=== PATIENT | male | born 1960 | race Caucasian/White ===

== ENCOUNTER 2018-05-30 17:41 | Inpatient (IN) | payer OTHER ==
[2018-05-30 18:31] VITALS: BMI 18.8
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
[2018-05-30] MEDS ORDERED: chlordiazePOXIDE HCL 25 MG CAPSULE PO PRN (20:12)
[2018-05-30] MEDS ORDERED: P-EPHED 60MG/TRIPROLIDI 2.5MG TABLET PO PRN (20:12)
[2018-05-30] MEDS ORDERED: NICOTINE POLACRILEX 2 MG GUM BC PRN (20:12)
[2018-05-30] MEDS ORDERED: guaiFENesin/D-METHORPHAN HB 10 ML UNIT-DOSE CUPS PO PRN (20:12)
[2018-05-30] MEDS ORDERED: IBUPROFEN 400 MG TABLET (FP) PO PRN (20:12)
[2018-05-30] MEDS ORDERED: MAG HYDROX/AL HYDROX/SIMETH 30 ML UNIT-DOSE CUP PO PRN (20:12)
[2018-05-30] MEDS ORDERED: MENTHOL/PHENOL 1 EACH UD MM PRN (20:12)
[2018-05-30] MEDS ORDERED: ACETAMINOPHEN 325 MG TABLET (FP) PO PRN (20:12)
[2018-05-30] MEDS ORDERED: MAGNESIUM HYDROX 2400MG/30ML ORAL SUSPENSION 30 ML CUP PO PRN (20:12)
[2018-05-30] MEDS ORDERED: MAGNESIUM CITRATE 300 ML BOTTLE PO PRN (20:12)
[2018-05-30] MEDS ORDERED: NITROGLYCERIN SUBLINGUAL 1/150 0.4 MG TAB SL PRN ×2 (20:13→21:28)
[2018-05-30] MEDS ORDERED: ALBUTEROL SO4 0.083% IH SOL 2.5 MG/3 ML VIAL.NEB. NEB PRN (20:15)
--- NOTE | 2018-05-30 21:45 | PN ---
BHS Progress Note Note: Patient denies any chest pain, dizziness, or SOB. Hx angina. Unsure if had slow heart rate in past. Alert and oriented x 3. Gait steady. Underweight. Lungs CTA. HR: regular rhythm w/ bradycardia. Vital Signs 05/30/18 18:30 Temperature 97 F L Pulse Rate 47 L Respiratory 16 Rate Blood Pressure 92/54 L Current B/P: 99/58 (L) HR: 48 O-2 Sat =98 Plan: Adjust Librium taper and add parameters. B/P; P; O-2 Sat Q4H x 6. Repeat EKG in am
[2018-05-30] MEDS ORDERED: MELATONIN 5 MG TABLETS PO PRN (22:00)
[2018-05-30] MEDS: THIAMINE HCL 100 MG TABLET (FP) PO SCH (22:06)
[2018-05-30] MEDS: chlordiazePOXIDE 5 MG CAPSULE PO SCH (22:06)
[2018-05-30] MEDS ORDERED: chlordiazePOXIDE HCL 25 MG CAPSULE PO SCH (23:00)
[2018-05-30] MEDS ORDERED: chlordiazePOXIDE 5 MG CAPSULE PO SCH (23:00)
[2018-05-31] MEDS: chlordiazePOXIDE 5 MG CAPSULE PO SCH ×3 (05:19→17:45)
[2018-05-31] MEDS ORDERED: METHADONE HCL 10 MG TABLET PO SCH (09:15)
[2018-05-31] MEDS: PRENATAL VITAMINS W/ FOLIC ACID TABLET (FP) PO SCH (10:10)
[2018-05-31] MEDS ORDERED: METHADONE HCL 40 MG DISPERSABLE TABLET ONE (10:12)
[2018-05-31] MEDS ORDERED: METHADONE HCL 10 MG TABLET ONE (10:12)
[2018-05-31 10:13] LABS: ALBUMIN 3.2 g/dl (3.4-5.0); ALK PHOS 59 U/L (45-117); ANION GAP 9 MMOL/L (8-16); BILIRUBIN,TOTAL 0.2 mg/dL (0.2-1); BLOOD UREA NITROGEN 19 mg/dL (7-18); CALCIUM 8.5 mg/dL (8.5-10.1); CHLORIDE 106 mmol/L (98-107); CO2 26 mmol/L (21-32); GLUCOSE,RANDOM 109 mg/dL (74-106); HEMATOCRIT 34.9 % (35.4-49); HEMOGLOBIN 11.9 GM/dL (11.7-16.9); MCHC 34.1 g/dl (32.0-35.9); MEAN CELL VOLUME 91.1 fl (80-96); MEAN PLT VOLUME 10.2 fl (7.5-11.1); PLATELET COUNT 153 K/MM3 (134-434); POTASSIUM 3.8 mmol/L (3.5-5.1); RBC 3.83 M/mm3 (4.00-5.60); SGOT/AST 18 U/L (15-37); SGPT/ALT 21 U/L (13-61); SODIUM 142 mmol/L (136-145); WHITE BLOOD COUNT 4.5 K/mm3 (4.0-10.0)
[2018-05-31] MEDS: METHADONE 40 MG, METHADONE 30 MG PO SCH (10:13)
[2018-05-31] MEDS ORDERED: NAPROXEN 375 MG TABLET (FP) PO ONE (12:43)
--- NOTE | 2018-05-31 13:23 | PN ---
[facility] CIWA - CIWA Score Nausea/Vomitin-No Nausea/No Vomiting Muscle Tremors: 3 Anxiety: 3 Agitation: 0-Normal Activity Paroxysmal Sweats: 3 Orientation: 0-Oriented Tacttile Disturbances: 2-Mild Itch/Numbness/Burn Auditory Disturbances: 2-Mild Harshness/Frighten Visual Disturbances: 0-None Headache: 0-None Present CIWA-Ar Total Score: 13 S Progress Note (SOAP) Subjective: Body Aches, Tremors, Sweating, Interrupted Sleep. Patient reports that he fell outside approx. 10 days ago and that he injured his lower back (primarily right side) and Right Hip (patient points to Posterior aspect of Right Hip). Patient did not go to ER or Medical Provider at time and reports pain in those areas currently. Objective: PATIENT A & O X 3. IN NO ACUTE DISTRESS. BRUISING NOTED ON LEFT SIDE OF LOWER BACK AREA. NO BRUISING, ERYTHEMA, WOUNDS, OR UNUSUAL DISCHARGE NOTED ON VISUAL INSPECTION OF RIGHT SIDE OF LOWER BACK OR ON RIGHT HIP. 05/31/18 13:25 Vital Signs Temperature 97.2 F L 05/31/18 09:41 Pulse Rate 70 05/31/18 09:41 Respiratory Rate 18 05/31/18 09:41 Blood Pressure 112/66 05/31/18 09:41 O2 Sat by Pulse Oximetry (%) Laboratory Tests 05/31/18 05/31/18 05/31/18 07:15 07:15 07:15 WBC 4.5 RBC 3.83 L Hgb 11.9 Hct 34.9 L MCV 91.1 MCH 31.0 MCHC 34.1 RDW 14.0 Plt Count 153 MPV 10.2 Sodium 142 Potassium 3.8 Chloride 106 Carbon Dioxide 26 Anion Gap 9 BUN 19 H Creatinine 1.0 Creat Clearance w eGFR > 60 Random Glucose 109 H Calcium 8.5 Total Bilirubin 0.2 AST 18 ALT 21 Alkaline Phosphatase 59 Total Protein 6.0 L Albumin 3.2 L RPR Titer Nonreactive LABS NOTED. Assessment: 05/31/18 13:26 WITHDRAWAL SYMPTOMS. Plan: CONTINUE DETOX. INCREASE DAILY PO FLUID INTAKE. NAPROXEN BID, LIDODERM PATCH FOR PAIN IN LOWER BACK AREA. X-RAYS OF LUMBOSACRAL SPINE AND OF RIGHT HIP ORDERED FOR 06/03/2018 ([facility] RADIOLOGY DEPARTMENT NOT OPEN AGAIN UNTIL THAT TIME.
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
[2018-05-31] MEDS: LIDOCAINE 5% TOPICAL PATCH TP SCH (15:05)
[2018-05-31] MEDS: risperiDONE 1 MG TABLET (FP) PO SCH (22:08)
[2018-05-31] MEDS: chlordiazePOXIDE HCL 10 MG CAPSULE PO SCH (22:08)
[2018-05-31] MEDS: NAPROXEN 375 MG TABLET (FP) PO SCH (22:08)
[2018-05-31] MEDS: THIAMINE HCL 100 MG TABLET (FP) PO SCH (22:08)
[2018-05-31] MEDS: LIDOCAINE PATCH REMOVAL MC SCH (22:09)
[2018-05-31] MEDS ORDERED: chlordiazePOXIDE HCL 25 MG CAPSULE PO SCH (23:00)
[2018-06-01] MEDS ORDERED: METHADONE HCL 10 MG TABLET ONE (06:01)
[2018-06-01] MEDS ORDERED: METHADONE HCL 40 MG DISPERSABLE TABLET ONE (06:01)
[2018-06-01] MEDS: chlordiazePOXIDE HCL 10 MG CAPSULE PO SCH ×3 (06:40→17:28)
[2018-06-01] MEDS: METHADONE 40 MG, METHADONE 30 MG PO SCH (06:40)
[2018-06-01] MEDS: LIDOCAINE 5% TOPICAL PATCH TP SCH (10:18)
[2018-06-01] MEDS: NAPROXEN 375 MG TABLET (FP) PO SCH ×2 (10:18→22:11)
[2018-06-01] MEDS: PRENATAL VITAMINS W/ FOLIC ACID TABLET (FP) PO SCH (10:19)
[2018-06-01] MEDS ORDERED: ONDANSETRON *ODT* 4 MG TABLET SL PRN (12:58)
--- NOTE | 2018-06-01 14:13 | PN ---
[facility] CIWA - CIWA Score Nausea/Vomitin-Mild Nausea/No Vomiting Muscle Tremors: 2 Anxiety: 2 Agitation: 2 Paroxysmal Sweats: 2 Orientation: 0-Oriented Tacttile Disturbances: 0-None Auditory Disturbances: 0-None Visual Disturbances: 0-None Headache: 0-None Present CIWA-Ar Total Score: 9 S Progress Note (SOAP) Subjective: Sweating, chills, tremor, n/v. Patient refused tigan IM stating he only wants PO medication for N/V. Objective: 06/01/18 14:10 Last Vital Signs Temp Pulse Resp BP Pulse Ox 98.9 F 68 16 116/70 06/01/18 10:00 06/01/18 10:00 06/01/18 10:00 06/01/18 10:00 Laboratory Tests 05/31/18 05/31/18 05/31/18 07:15 07:15 07:15 WBC 4.5 RBC 3.83 L Hgb 11.9 Hct 34.9 L MCV 91.1 MCH 31.0 MCHC 34.1 RDW 14.0 Plt Count 153 MPV 10.2 Sodium 142 Potassium 3.8 Chloride 106 Carbon Dioxide 26 Anion Gap 9 BUN 19 H Creatinine 1.0 Creat Clearance w eGFR > 60 Random Glucose 109 H Calcium 8.5 Total Bilirubin 0.2 AST 18 ALT 21 Alkaline Phosphatase 59 Total Protein 6.0 L Albumin 3.2 L RPR Titer Nonreactive Labs reviewed Assessment: 06/01/18 14:12 Withdrawal symptoms Plan: Continue detox Encouraged PO water hydration
--- NOTE | 2018-06-01 19:40 | EKG ---
Test Reason : Blood Pressure : / mmHG Vent. Rate : 065 BPM Atrial Rate : 065 BPM P-R Int : 160 ms QRS Dur : 086 ms QT Int : 408 ms P-R-T Axes : 082 031 058 degrees QTc Int : 424 ms NORMAL SINUS RHYTHM NORMAL ECG NO PREVIOUS ECGS AVAILABLE Confirmed by THEE ALEMAN MD ([id number]) on 06/01/2018 7:40:22 PM Referred By: Confirmed By:THEE ALEMAN MD
[2018-06-01] MEDS: THIAMINE HCL 100 MG TABLET (FP) PO SCH (22:10)
[2018-06-01] MEDS: risperiDONE 1 MG TABLET (FP) PO SCH (22:11)
[2018-06-01] MEDS: chlordiazePOXIDE 5 MG CAPSULE PO SCH (22:11)
[2018-06-01] MEDS: LIDOCAINE PATCH REMOVAL MC SCH (22:12)
[2018-06-01] MEDS ORDERED: chlordiazePOXIDE 5 MG CAPSULE PO SCH ×2 (23:00)
[2018-06-02] MEDS ORDERED: METHADONE HCL 10 MG TABLET ONE (04:49)
[2018-06-02] MEDS ORDERED: METHADONE HCL 40 MG DISPERSABLE TABLET ONE (04:50)
[2018-06-02] MEDS: chlordiazePOXIDE 5 MG CAPSULE PO SCH ×4 (05:08→22:04)
[2018-06-02] MEDS: METHADONE 40 MG, METHADONE 30 MG PO SCH (05:09)
[2018-06-02] MEDS: PRENATAL VITAMINS W/ FOLIC ACID TABLET (FP) PO SCH (10:21)
[2018-06-02] MEDS: NAPROXEN 375 MG TABLET (FP) PO SCH ×2 (10:21→22:05)
--- NOTE | 2018-06-02 10:39 | PN ---
BHS Progress Note (SOAP) Subjective: feeling better less tremor mild sweating discuss alcohol related cardiac problems patient agrees to follow up with methadone program provider Objective: 06/02/18 10:38 Vital Signs Temperature 97 F L 06/02/18 09:02 Pulse Rate 59 L 06/02/18 09:02 Respiratory Rate 20 06/02/18 09:02 Blood Pressure 93/60 06/02/18 09:02 O2 Sat by Pulse Oximetry (%) Laboratory Last Values WBC 4.5 K/mm3 (4.0-10.0) 05/31/18 07:15 RBC 3.83 M/mm3 (4.00-5.60) L 05/31/18 07:15 Hgb 11.9 GM/dL (11.7-16.9) 05/31/18 07:15 Hct 34.9 % (35.4-49) L 05/31/18 07:15 MCV 91.1 fl (80-96) 05/31/18 07:15 MCH 31.0 pg (25.7-33.7) 05/31/18 07:15 MCHC 34.1 g/dl (32.0-35.9) 05/31/18 07:15 RDW 14.0 % (11.9-15.9) 05/31/18 07:15 Plt Count 153 K/MM3 (134-434) 05/31/18 07:15 MPV 10.2 fl (7.5-11.1) 05/31/18 07:15 Sodium 142 mmol/L (136-145) 05/31/18 07:15 Potassium 3.8 mmol/L (3.5-5.1) 05/31/18 07:15 Chloride 106 mmol/L (98-107) 05/31/18 07:15 Carbon Dioxide 26 mmol/L (21-32) 05/31/18 07:15 Anion Gap 9 MMOL/L (8-16) 05/31/18 07:15 BUN 19 mg/dL (7-18) H 05/31/18 07:15 Creatinine 1.0 mg/dL (0.55-1.3) 05/31/18 07:15 Creat Clearance w eGFR > 60 (>60) 05/31/18 07:15 Random Glucose 109 mg/dL (74-106) H 05/31/18 07:15 Calcium 8.5 mg/dL (8.5-10.1) 05/31/18 07:15 Total Bilirubin 0.2 mg/dL (0.2-1) 05/31/18 07:15 AST 18 U/L (15-37) 05/31/18 07:15 ALT 21 U/L (13-61) 05/31/18 07:15 Alkaline Phosphatase 59 U/L (45-117) 05/31/18 07:15 Total Protein 6.0 g/dl (6.4-8.2) L 05/31/18 07:15 Albumin 3.2 g/dl (3.4-5.0) L 05/31/18 07:15 RPR Titer Nonreactive (NONREACTIVE) 05/31/18 07:15 lab noted Assessment: 06/02/18 10:38 withdrawal sx Plan: continue detox
[2018-06-02] MEDS: LIDOCAINE 5% TOPICAL PATCH TP SCH (10:49)
[2018-06-02] MEDS: risperiDONE 1 MG TABLET (FP) PO SCH (22:05)
[2018-06-02] MEDS: LIDOCAINE PATCH REMOVAL MC SCH (22:05)
[2018-06-02] MEDS: THIAMINE HCL 100 MG TABLET (FP) PO SCH (22:05)
[2018-06-02] MEDS ORDERED: chlordiazePOXIDE HCL 10 MG CAPSULE PO SCH ×2 (23:00)
[2018-06-03] MEDS ORDERED: METHADONE HCL 40 MG DISPERSABLE TABLET ONE (04:49)
[2018-06-03] MEDS ORDERED: METHADONE HCL 10 MG TABLET ONE (04:49)
[2018-06-03] MEDS: METHADONE 40 MG, METHADONE 30 MG PO SCH (05:14)
[2018-06-03] MEDS: chlordiazePOXIDE 5 MG CAPSULE PO SCH (05:14)
[2018-06-03 06:05] VITALS: BP 127/70; PULSE 50; TEMP 97.4
--- NOTE | 2018-06-03 10:00 | DS ---
[facility] Detox Discharge Summary Admission Date: 05/30/18 Discharge Date: 06/03/18 - History Present History: Alcohol Dependence Additional Comments: 58 years old male admitted on 05/30/18 for alcohol withdrawal stabilization completed alcohol detox regimen tolerated well [facility] Pertinent Past History: patient agrees to consider return to patient [facility] admission patient agrees to return to methadone program for medical mental and addiction issues - Physical Exam Results Vital Signs: Vital Signs Temperature 97.4 F L 06/03/18 06:05 Pulse Rate 50 L 06/03/18 06:05 Respiratory Rate 18 06/03/18 06:30 Blood Pressure 127/70 06/03/18 06:05 O2 Sat by Pulse Oximetry (%) Pertinent Admission Physical Exam Findings: alcohol withdrawal sx Laboratory Last Values WBC 4.5 K/mm3 (4.0-10.0) 05/31/18 07:15 RBC 3.83 M/mm3 (4.00-5.60) L 05/31/18 07:15 Hgb 11.9 GM/dL (11.7-16.9) 05/31/18 07:15 Hct 34.9 % (35.4-49) L 05/31/18 07:15 MCV 91.1 fl (80-96) 05/31/18 07:15 MCH 31.0 pg (25.7-33.7) 05/31/18 07:15 MCHC 34.1 g/dl (32.0-35.9) 05/31/18 07:15 RDW 14.0 % (11.9-15.9) 05/31/18 07:15 Plt Count 153 K/MM3 (134-434) 05/31/18 07:15 MPV 10.2 fl (7.5-11.1) 05/31/18 07:15 Sodium 142 mmol/L (136-145) 05/31/18 07:15 Potassium 3.8 mmol/L (3.5-5.1) 05/31/18 07:15 Chloride 106 mmol/L (98-107) 05/31/18 07:15 Carbon Dioxide 26 mmol/L (21-32) 05/31/18 07:15 Anion Gap 9 MMOL/L (8-16) 05/31/18 07:15 BUN 19 mg/dL (7-18) H 05/31/18 07:15 Creatinine 1.0 mg/dL (0.55-1.3) 05/31/18 07:15 Creat Clearance w eGFR > 60 (>60) 05/31/18 07:15 Random Glucose 109 mg/dL (74-106) H 05/31/18 07:15 Calcium 8.5 mg/dL (8.5-10.1) 05/31/18 07:15 Total Bilirubin 0.2 mg/dL (0.2-1) 05/31/18 07:15 AST 18 U/L (15-37) 05/31/18 07:15 ALT 21 U/L (13-61) 05/31/18 07:15 Alkaline Phosphatase 59 U/L (45-117) 05/31/18 07:15 Total Protein 6.0 g/dl (6.4-8.2) L 05/31/18 07:15 Albumin 3.2 g/dl (3.4-5.0) L 05/31/18 07:15 RPR Titer Nonreactive (NONREACTIVE) 05/31/18 07:15 lab noted - Treatment Hospital Course: Detox Protocol Followed, Detoxed Safely, Responded well (58), Discharged Condition Good, Rehab Referral Accepted [facility] - Medication Discharge Medications: Ambulatory Orders Risperidone [Risperdal -] 1 mg PO DAILY 05/30/18 clonazePAM [Klonopin -] 0.5 mg PO DAILY 05/30/18 Nitroglycerin Sublingual [Nitrostat -] 0.4 mg SL DAILY #7 tab 06/02/18 - Diagnosis (1) Asthma Status: Chronic Qualifiers: Asthma severity: mild Asthma persistence: intermittent Asthma complication type: with status asthmaticus Qualified Code(s): J45.22 - Mild intermittent asthma with status asthmaticus (2) HTN (hypertension), benign Status: Chronic (3) Hepatitis C Status: Chronic Qualifiers: Viral hepatitis chronicity: unspecified Hepatic coma status: without hepatic coma Qualified Code(s): B19.20 - Unspecified viral hepatitis C without hepatic coma (4) Nicotine dependence Status: Acute Qualifiers: Nicotine product type: cigarettes Substance use status: in withdrawal Qualified Code(s): F17.213 - Nicotine dependence, cigarettes, with withdrawal (5) Methadone maintenance therapy patient Status: Chronic - AMA Did Patient Leave Against Medical Advice: No
== END 2018-06-03 08:25 | disposition home or self-care (01) | DRG 773 ==
LOC: YASAS 17:41 → Y3N 19:22
PROVIDERS: ADMIT Neuromusculoskeletal Medicine & OMM; ATTEND Neuromusculoskeletal Medicine & OMM
PROC: HZ2ZZZZ Detoxification Services for Substance Abuse Treatment (ICD-10-PCS; principal; 2018-05-30)
DX: F10.230 Alcohol dependence with withdrawal, uncomplicated (principal); F11.20 Opioid dependence, uncomplicated; F14.20 Cocaine dependence, uncomplicated; F17.213 Nicotine dependence, cigarettes, with withdrawal; F31.9 Bipolar disorder, unspecified; F39 Unspecified mood [affective] disorder; F25.9 Schizoaffective disorder, unspecified; I10 Essential (primary) hypertension; J45.22 Mild intermittent asthma with status asthmaticus; B19.20 Unspecified viral hepatitis C without hepatic coma; I20.9 Angina pectoris, unspecified
CPT/HCPCS: 36415; 80053; 85027; 86593; 93005; 93010; 94640; J2794

== ENCOUNTER 2020-07-15 15:55 | Inpatient (IN) | payer OTHER ==
[2020-07-15 21:33] VITALS: BMI 18.2
[2020-07-16] MEDS ORDERED: ACETAMINOPHEN 325 MG TABLET (FP) PO PRN (00:34)
[2020-07-16] MEDS ORDERED: MAG HYDROX/AL HYDROX/SIMETH 30 ML UNIT-DOSE CUP PO PRN (00:34)
[2020-07-16] MEDS ORDERED: NICOTINE POLACRILEX 2 MG GUM BC PRN (00:34)
[2020-07-16] MEDS ORDERED: MAGNESIUM CITRATE 300 ML BOTTLE PO PRN (00:34)
[2020-07-16] MEDS ORDERED: P-EPHED 60MG/TRIPROLIDI 2.5MG TABLET PO PRN (00:34)
[2020-07-16] MEDS ORDERED: LOPERAMIDE HCL 2 MG CAPSULE PO PRN (00:34)
[2020-07-16] MEDS ORDERED: MAGNESIUM HYDROX 2400MG/30ML ORAL SUSPENSION 30 ML CUP PO PRN (00:34)
[2020-07-16] MEDS ORDERED: guaiFENesin 200 MG/10 ML 10 ML UNIT-DOSE CUPS PO PRN (00:34)
[2020-07-16] MEDS ORDERED: TUBERCULIN PPD 5 TU/0.1ML VIAL ID ONE (01:25)
[2020-07-16] MEDS ORDERED: METHADONE HCL 40 MG DISPERSABLE TABLET PO SCH (08:45)
[2020-07-16] MEDS ORDERED: METHADONE HCL 40 MG DISPERSABLE TABLET ONE (08:58)
[2020-07-16] MEDS ORDERED: METHADONE HCL 5 MG TABLET ONE (08:59)
[2020-07-16] MEDS: METHADONE 80 MG, METHADONE 5 MG PO SCH (09:12)
[2020-07-16] MEDS: PRENATAL VITAMINS W/ FOLIC ACID TABLET (FP) PO SCH (09:12)
[2020-07-16] MEDS: NICOTINE 21 MG/24 HOURS TOPICAL PATCH TD SCH (09:12)
[2020-07-16 10:26] LABS: HEMOGLOBIN 11.5 GM/dL (11.7-16.9); MCH 30.4 pg (25.7-33.7); MCHC 33.9 g/dl (32.0-35.9); MEAN CELL VOLUME 89.9 fl (80-96); MEAN PLT VOLUME 10.2 fl (7.5-11.1); PLATELET COUNT 157 K/MM3 (134-434); RBC 3.78 M/mm3 (4.00-5.60); RDW 13.1 % (11.9-15.9); WHITE BLOOD COUNT 4.6 K/mm3 (4.0-10.0)
[2020-07-16 10:33] LABS: POTASSIUM 3.8 mmol/L (3.5-5.1)
[2020-07-16 10:36] LABS: EPI CELLS 3 /uL (0-25.1); HYALINE CASTS 0 /uL (0-3.1); PH,URINE 5.5 (5.0-8.0); URINE APPEARANCE CLEAR; URINE BACTERIA 139 /uL (0-1359); URINE BILIRUBIN NEGATIVE (NEGATIVE); URINE COLOR YELLOW; URINE GLUCOSE (UA) NEGATIVE (NEGATIVE); URINE KETONE NEGATIVE (NEGATIVE); URINE LEUK ESTERASE NEGATIVE (NEGATIVE); URINE NITRITE NEGATIVE (NEGATIVE); URINE PROTEIN NEGATIVE (NEGATIVE); URINE RBC 8 /uL (0-23.9); URINE UROBILINOGEN 0.2 mg/dL (0.2-1.0); URINE WBC 4 /uL (0-25.8)
[2020-07-16 10:43] LABS: CALCIUM 8.8 mg/dL (8.5-10.1)
[2020-07-16 10:44] LABS: ALBUMIN 3.4 g/dl (3.4-5.0)
[2020-07-16 10:47] LABS: BILIRUBIN,TOTAL 0.6 mg/dL (0.2-1); TOT PROT 6.5 g/dl (6.4-8.2)
[2020-07-16] MEDS: IBUPROFEN 400 MG TABLET (FP) PO PRN (21:09)
[2020-07-16] MEDS: MELATONIN 5 MG TABLETS PO SCH (21:09)
[2020-07-16] MEDS: THIAMINE HCL 100 MG TABLET (FP) PO SCH (21:09)
[2020-07-17] MEDS ORDERED: METHADONE HCL 5 MG TABLET ONE (03:25)
[2020-07-17] MEDS ORDERED: METHADONE HCL 40 MG DISPERSABLE TABLET ONE (03:25)
[2020-07-17] MEDS: METHADONE 80 MG, METHADONE 5 MG PO SCH (06:21)
[2020-07-17] MEDS: PRENATAL VITAMINS W/ FOLIC ACID TABLET (FP) PO SCH (09:21)
[2020-07-17] MEDS: NICOTINE 21 MG/24 HOURS TOPICAL PATCH TD SCH (09:21)
[2020-07-17] MEDS: IBUPROFEN 400 MG TABLET (FP) PO PRN (09:22)
[2020-07-17] MEDS: MELATONIN 5 MG TABLETS PO SCH (21:44)
[2020-07-17] MEDS: THIAMINE HCL 100 MG TABLET (FP) PO SCH (21:44)
[2020-07-17] MEDS: risperiDONE 1 MG TABLET PO SCH (21:44)
[2020-07-18] MEDS ORDERED: METHADONE HCL 40 MG DISPERSABLE TABLET ONE (03:42)
[2020-07-18] MEDS ORDERED: METHADONE HCL 5 MG TABLET ONE (03:42)
[2020-07-18] MEDS: METHADONE 80 MG, METHADONE 5 MG PO SCH (06:18)
[2020-07-18] MEDS: PRENATAL VITAMINS W/ FOLIC ACID TABLET (FP) PO SCH (10:30)
[2020-07-18] MEDS: risperiDONE 1 MG TABLET PO SCH (10:30)
[2020-07-18] MEDS: NICOTINE 21 MG/24 HOURS TOPICAL PATCH TD SCH (10:33)
[2020-07-18] MEDS ORDERED: risperiDONE 2 MG TABLET PO ONE (13:54)
[2020-07-18] MEDS ORDERED: risperiDONE 1 MG TABLET ONE (21:42)
[2020-07-18] MEDS ORDERED: risperiDONE 2 MG TABLET ONE (21:43)
[2020-07-18] MEDS: RISPERIDONE PO SCH (21:50)
[2020-07-18] MEDS: MELATONIN 5 MG TABLETS PO SCH (21:51)
[2020-07-18] MEDS: THIAMINE HCL 100 MG TABLET (FP) PO SCH (21:51)
[2020-07-18] MEDS: DIVALPROEX NA *ER* EXTEND REL 500 MG TABLET.SA (FP) PO SCH (21:51)
[2020-07-18] MEDS ORDERED: risperiDONE 3 MG TABLET PO SCH (22:00)
[2020-07-19] MEDS ORDERED: METHADONE HCL 40 MG DISPERSABLE TABLET ONE (03:18)
[2020-07-19] MEDS ORDERED: METHADONE HCL 5 MG TABLET ONE (03:18)
[2020-07-19] MEDS: METHADONE 80 MG, METHADONE 5 MG PO SCH (06:26)
[2020-07-19] MEDS ORDERED: risperiDONE 1 MG TABLET ONE ×2 (09:14→20:02)
[2020-07-19] MEDS ORDERED: risperiDONE 2 MG TABLET ONE ×2 (09:15→20:02)
[2020-07-19] MEDS: RISPERIDONE PO SCH ×2 (10:30→21:51)
[2020-07-19] MEDS: PRENATAL VITAMINS W/ FOLIC ACID TABLET (FP) PO SCH (10:30)
[2020-07-19] MEDS: NICOTINE 21 MG/24 HOURS TOPICAL PATCH TD SCH (10:30)
[2020-07-19] MEDS: MELATONIN 5 MG TABLETS PO SCH (21:51)
[2020-07-19] MEDS: THIAMINE HCL 100 MG TABLET (FP) PO SCH (21:51)
[2020-07-19] MEDS: DIVALPROEX NA *ER* EXTEND REL 500 MG TABLET.SA (FP) PO SCH (21:51)
[2020-07-20] MEDS ORDERED: METHADONE HCL 5 MG TABLET ONE (03:16)
[2020-07-20] MEDS ORDERED: METHADONE HCL 40 MG DISPERSABLE TABLET ONE (03:16)
[2020-07-20] MEDS: METHADONE 80 MG, METHADONE 5 MG PO SCH (06:18)
[2020-07-20 07:01] VITALS: BP 105/62; PULSE 60; TEMP 96.9
[2020-07-20] MEDS ORDERED: risperiDONE 2 MG TABLET ONE (09:12)
[2020-07-20] MEDS ORDERED: risperiDONE 1 MG TABLET ONE (09:12)
== END 2020-07-20 10:26 | disposition home or self-care (01) | DRG 772 ==
LOC: YASAS 15:55 → Y3W 07-16 01:13
PROVIDERS: ADMIT Allergy & Immunology; ATTEND Allergy & Immunology
PROC: HZ42ZZZ Group Counseling for Substance Abuse Treatment, Cognitive-Behavioral (ICD-10-PCS; principal; 2020-07-16)
DX: F14.20 Cocaine dependence, uncomplicated (principal); F16.20 Hallucinogen dependence, uncomplicated; F11.20 Opioid dependence, uncomplicated; F17.210 Nicotine dependence, cigarettes, uncomplicated; F19.280 Other psychoactive substance dependence with psychoactive substance-induced anxiety disorder; F19.282 Other psychoactive substance dependence with psychoactive substance-induced sleep disorder; F20.9 Schizophrenia, unspecified; Z21 Asymptomatic human immunodeficiency virus [HIV] infection status; J45.909 Unspecified asthma, uncomplicated; M54.5 Low back pain; G89.29 Other chronic pain; B18.2 Chronic viral hepatitis C; Z62.810 Personal history of physical and sexual abuse in childhood; Z87.81 Personal history of (healed) traumatic fracture; Z98.890 Other specified postprocedural states; W20.8XXA Other cause of strike by thrown, projected or falling object, initial encounter; Y93.89 Activity, other specified; Y92.232 Corridor of hospital as the place of occurrence of the external cause; Y99.8 Other external cause status
CPT/HCPCS: 36415; 80053; 81003; 85027; 86780; 93005; 93010; C9803; J2794; U0003